=== PATIENT | male | born 1955 | race Caucasian/White ===

== ENCOUNTER 2024-01-31 11:55 | Emergency (ER) | payer OTHER, SELFPAY ==
--- NOTE | ~2024-01-31 | XR_ITS ---
XR finger 2nd LT min 2V DATE: 01/31/2024 12:22 INDICATION: Injury, laceration of second digit TECHNIQUE: 4 views COMPARISON: None FINDINGS: There is polyarticular osteoarthritis, involving first carpometacarpal, the including first 3 metacarpophalangeal joints and second digit distal interphalangeal joint. No fracture or dislocation, periosteal reaction or bone destruction no radiopaque soft tissue foreign body or subcutaneous emphysema. IMPRESSION: Polyarticular osteoarthritis No fracture or dislocation or radiopaque foreign body Reviewed, dictated and finalized at location A.
--- NOTE | 2024-01-31 11:59 | ED.WOUNDLAC ---
HPI - Wound/Laceration General Chief Complaint: Wound/Laceration Stated Complaint: left index finger laceration Time Seen by Provider: 01/31/24 11:58 History of Present Illness HPI narrative: Patient is a 69 year old male with history of paroxysmal afib, on eliquis, here with a finger laceration. Patient notes that about 20 minutes prior to arrival he was attempting to clean gutters on his house and a piece of aluminum gutter fell 18 feet. He attempted to move out of the way and the gutter hit his left index finger, causing a laceration. He did not apply anything to the wound prior to presentation other than a pressure dressing with a clean paper towel. He notes current pain of the left index finger, worse with movement, no additional injuries. No numbness or weakness in the hand. Last tetanus vaccine was more than 5 years ago. Related Data Allergies Allergy/AdvReac Type Severity Reaction Status Date / Time naproxen [From Aleve] Allergy Anaphylactic Verified 01/31/24 12:03 Shock Penicillins Allergy Anaphylactic Verified 01/31/24 12:03 Shock Review of Systems Review of Systems: All systems reviewed & are unremarkable except as noted in HPI and below Exam Narrative: GENERAL: Well-appearing, well-nourished, and in no acute distress. HEAD: Normocephalic, atraumatic. EYES: PERRLA and EOMI. NECK: Supple. CHEST: unlabored respirations HEART: Regular rate and rhythm. Normal peripheral pulses. EXTREMITIES: forearm and wrist nontender on the left side, which should. Oblique linear 2.5 cm laceration over the dorsal aspect of the proximal left index finger, does not appear to cross PIP or MCP joint, normal range of motion, no bony deformities appreciated. Normal capillary refill. Normal strength and sensation distal to injury. Remainder of hand atraumatic. SKIN: Warm, dry, no rash. Course Course Emergency Course: Chart review performed no prior visits here. Patient here with a laceration on his left index finger from cleaning out a birds nest. triage vitals show hypertension otherwise within normal limits. Patient seen evaluated, nontoxic appearing. He appears to have the linear laceration over the left index finger, bleeding controlled. Normal range of motion, no concern for tendon involvement will do x-ray to evaluate for foreign body or fracture then he will require laceration repaired. Will update tetanus. Patient agreeable. X-ray negative for fracture or foreign body. Laceration repair performed by myself, Patient tolerated well. The results of pertinent diagnostic studies and exam findings were discussed. The patient?s provisional diagnosis and plan of care were discussed with the patient and present family. The patient and/or present family expressed understanding of the diagnosis and plan. The nurse was instructed to provide written instructions and appropriate follow-up information. The patient understands their need and responsibility to obtain additional follow-up as instructed. The risks of medications administered and prescribed were discussed with the patient and family present. Vital Signs Vital signs: Vital Signs Temperature 97.2 F L 01/31/24 12:00 Pulse Rate 77 01/31/24 12:00 Respiratory Rate 19 01/31/24 12:00 Blood Pressure 158/85 H 01/31/24 12:00 Pulse Oximetry 99 01/31/24 12:00 Oxygen Delivery Room Air 01/31/24 12:00 Temperature 97.2 F L 01/31/24 12:00 Pulse Rate 77 01/31/24 12:00 Respiratory Rate 19 01/31/24 12:00 Blood Pressure 158/85 H 01/31/24 12:00 Pulse Oximetry 99 01/31/24 12:00 Oxygen Delivery Room Air 01/31/24 12:00 Procedures Laceration Laceration 1: Date: 01/31/24 Time: 13:01 Site: hand Side (If applicable): left Size (cm): 2.5 Description: linear Depth: simple, single layer Local Anesthetic: lidocaine 1% Amount of anesthesia used (mL): 3 ====== Skin Level ======
[2024-01-31 12:00] VITALS: BP 158/85; PULSE 77; RESP 19; TEMP 36.2; O2SAT 99
[2024-01-31] MEDS: TETANUS,DIPHTHERIA,AC PERTUSSIS ADULT (0.5 ML) BOOSTRIX IM (12:14)
[2024-01-31 13:32] VITALS: BP 135/75; PULSE 71; RESP 18; O2SAT 99
== END 2024-01-31 13:34 | disposition home or self-care (01) ==
PROVIDERS: Emergency Provider Student in an Organized Health Care Education/Training Program; PCP Nurse Practitioner Family
DX: S61.211A Laceration without foreign body of left index finger without damage to nail, initial encounter (principal); W45.8XXA Other foreign body or object entering through skin, initial encounter; I48.0 Paroxysmal atrial fibrillation; Z79.01 Long term (current) use of anticoagulants; Z23 Encounter for immunization
CPT/HCPCS: 12001; 73140; 90471; 90715; 99283